=== PATIENT | male | born 1935 | race Caucasian/White ===

== ENCOUNTER 2017-12-31 08:40 | Day surgery (SDC) | payer OTHER ==
[2017-12-31] MEDS ORDERED: Ringers Lactate 1,000 ML IV ONE (09:21)
[2017-12-31] MEDS: LIDOCAINE 1% W/EPI 1:100,000 MDV 50 ML VIAL ONE ×2 (10:31→11:12)
[2017-12-31] MEDS ORDERED: PROPOFOL 200 MG/20 ML VIAL IV ONE (10:50)
[2017-12-31] MEDS ORDERED: LIDOCAINE 2% MPF 5 ML VIAL ONE (10:50)
[2017-12-31] MEDS ORDERED: GLYCOPYRROLATE 0.2 MG/ML SYR ONE ×2 (11:24→11:25)
[2017-12-31] MEDS ORDERED: EPHEDRINE SULF 50 MG/10 ML SYR ONE (11:39)
[2017-12-31] MEDS ORDERED: MINERAL OIL, LITE 10 ML VIAL ONE (12:19)
[2017-12-31] MEDS: MORPHINE 4 MG/ML SYR ONE ×2 (12:56→13:04)
[2017-12-31 13:16] VITALS: O2SAT 94
[2017-12-31 14:03] VITALS: BP 155/64; TEMP 97.3
--- NOTE | 2018-01-03 10:33 | OP ---
Date of Procedure: 12/31/2017 Surgeon: Karla Camacho MD Preoperative Diagnosis: Left nasal ala basal cell carcinoma. Postoperative Diagnosis: Left nasal ala basal cell carcinoma. Procedure: Local excision of basal cell carcinoma with frozen section to confirm margin status, ear cartilage graft to the left nasal ala and full- thickness skin graft donor site left neck, recipient site left nose. Indication For Procedure: Mr. Rodgers presented to the clinic with a moderate- sized basal cell carcinoma of the nasal ala with palpation of the lesion. There was concern regarding the depth of the lesion and ability to obtain negative margins without creating a through and through defect of the nasal ala. In addition, resection was likely to result in structural destabilization of the ala with collapse of the nostril and decision was made to perform the procedure under general anesthetic in the operating room to allow for appropriate reduction depending on the size, depth, and location of the defect. The risks, benefits, and alternatives to the procedure were discussed with the patient and his daughter. They agreed to proceed. Description Of Procedure: The patient was brought to the operating room. He was placed under general anesthesia via LMA. The patient's left face and neck were prepped with Betadine and draped in a sterile fashion. The left ear, the skin over the mastoid and upper neck, and the skin around the left nostril, nose , and medial cheek were injected with local anesthetic. The lesion of concern was noted on the left nasal ala. A margin 2-3 mm grossly was designed around the lesion and the skin was incised using Bovie electrocautery. A suture was placed at the superior most aspect of the lesion marking 12 o'clock and was elevated with electrocautery from the underlying tissues. Grossly, the skin was not involved and the specimen was sent to Pathology for frozen section evaluation. The size of the defect was approximately 2 x 1.5 cm, encompassed the majority of the nasal ala including the edge of the nasal septum. Decision was made to proceed with harvest of cartilage graft for reconstruction. While awaiting frozen section analysis, a curvilinear incision was made along the edge of the antihelix of the left ear. Anterior skin was elevated off the conchal cartilage, then incision through the cartilage was made at the edge of the antihelix and the posterior skin was elevated from the cartilage. The cartilage was then cut and placed in saline-soaked sponge on the back table. Bovie electrocautery was used to control small amount of oozing. The superior skin flap of the ear was then laid over the cartilaginous defect and the incision was closed in a primary fashion using a running plain gut suture. Direct pressure was applied on the ear to aid in hemostasis, but oozing overall was minimal. Attention was then turned to the surgical defect of the nose. The area around the defect was undermined several millimeters using the Bovie electrocautery. Vestibular skin was intact, but several areas of small vessels were cauterized to control oozing and bleeding. The pathologist returned the results confirming basal cell carcinoma with negative peripheral and deep margins and further reconstruction options could be considers and surgery proceed. The cartilage graft was trimmed slightly and within the surgical defect with option for skin coverage was then considered. Local tissue rearrangement was considered, but due to the size of the defect and location of the defect along with the patient's overall skin condition with multiple areas concerning for future skin malignancy and chronic skin damage, decision was made to forego local tissue arrangement in lieu of a skin graft. Skin was harvested from the postauricular mastoid upper neck region using Bovie electrocautery. The full thickness graft was approximately 2.5 x 2 cm. After harvest, the graft was laid over the defect of the nose and trimmed to appropriate size. The skin graft was then secured using a running 5-0 plain gut suture. A mineral oil soaked cotton ball was placed over the skin graft as a bolster was secured using 4-0 silk sutures. The skin graft donor site was carefully undermined. The superior and inferior portions of the donor site were approximated using 4-0 Vicryl suture, but excessive skin tension prevented complete closure in the center. The incision was then closed in a running fashion using plain gut sutures. Again, the superior and inferior aspects of the donor site were closed nicely with a 2-3 mm dehiscence in the central portion of the donor site, which was left open to heal by secondary intention. Triple antibiotic ointment was applied to the ear and postauricular wound sites and the patient was returned to care of Anesthesia for awakening in the operating room, which proceeded without difficulty and the patient was transported to the recovery room in stable condition. He will be discharged home later today in the care of his family and follow up with Dr. Camacho in 6 days for removal of the bolster. JONES/FRANCISCO JAVIER Voice ID: [id number] Report ID: [id number]
== END 2017-12-31 14:05 | disposition home or self-care (01) ==
LOC: OR 08:40
PROVIDERS: ATTEND Otolaryngology
PROC: 0HB4XZZ Excision of Neck Skin, External Approach (ICD-10-PCS; 2017-12-31)
PROC: 09R Ear, Nose, Sinus, Replacement (ICD-10-PCS; 2017-12-31)
PROC: 09B1XZZ Excision of Left External Ear, External Approach (ICD-10-PCS; 2017-12-31)
PROC: 0HR1X73 Replacement of Face Skin with Autologous Tissue Substitute, Full Thickness, External Approach (ICD-10-PCS; principal; 2017-12-31 11:00)
DX: C44.311 Basal cell carcinoma of skin of nose (principal); I10 Essential (primary) hypertension; J44.9 Chronic obstructive pulmonary disease, unspecified; G47.33 Obstructive sleep apnea (adult) (pediatric); I25.10 Atherosclerotic heart disease of native coronary artery without angina pectoris; Z95.1 Presence of aortocoronary bypass graft; Z87.891 Personal history of nicotine dependence; Z82.49 Family history of ischemic heart disease and other diseases of the circulatory system
CPT/HCPCS: 88305; 88331; 88332